=== PATIENT | female | born 1995 | race Caucasian/White ===

== ENCOUNTER 2017-10-24 12:16 | Emergency (ER) | payer OTHER ==
[~2017-10-24] VITALS: Ht 162.6 cm; Wt 54.4 kg
--- NOTE | 2017-10-24 12:52 | NUR ---
PT IS IN ROOM #2A. DR LYN EVALUATED THE PT.
[2017-10-24 13:34] LABS: *URINE HCG, QUAL NEGATIVE (NEGATIVE)
--- NOTE | 2017-10-24 14:03 | NUR ---
PT WAS D/C TO HOME. D/C INSTRUCTIONS GIVEN TO THE PT BY DR LYN.
[2017-10-24 14:04] VITALS: BP 125/77
== END 2017-10-24 14:05 | disposition home or self-care (01) ==
LOC: ER 12:16
DX: R55 Syncope and collapse (principal)
CPT/HCPCS: 84703; 93005; A4663